=== PATIENT | female | born 1960 | race Caucasian/White ===

== ENCOUNTER 2018-12-17 07:20 | Observation (INO) | payer BC ==
[~2018-12-17] VITALS: Ht 170.2 cm; Wt 75.0 kg
[2018-12-17] MEDS ORDERED: NITR1PAT22 TD (07:38)
[2018-12-17] MEDS ORDERED: ASPI-496 PO (07:38)
--- NOTE | 2018-12-17 07:51 | NUR ---
PT ARRIVED TO ROOM 15 WITH [facility] VIA [facility]. PT AMBULATORY TO [facility]. DRESSED IN GOWN AND ATTACHED TO MONITOR. [facility] PT C/O CHEST PAIN, HX ANGINA, NO RELIEF AT HOME WITH NITRO OR REST. PT IS A TRANSFER FROM [facility] WITH [facility] FOR C/P PER PT'S CARDIOLOGY REQUEST. VSS, AAO X 4, CURRENTLY DENIES C/P AND H/A. PER EMS REPORT, PT SEVERLY HYPERTENSIVE IN [facility], GIVEN 40MG IV PUSH LABETALOL AND 100MG PO LABETALOL.
--- NOTE | 2018-12-17 08:12 | NUR ---
PT RESTING COMFORTABLY ON TOBIASRDERICK, AAO X 4, VSS, CALL LIGHT WITHIN REACH, PT UP TO DATE ON PLAN OF CARE.
--- NOTE | 2018-12-17 08:29 | NUR ---
FIRST ATTEMPT TO CALL REPORT, RN IN ROOM ADMINISTERING MEDICATIONS, RN STATES SHE WILL CALL BACK.
[2018-12-17] MEDS ORDERED: ONDANSETRON ODT 4 MG PO PRN (08:30)
[2018-12-17] MEDS ORDERED: NITROGLYCERIN 0.2 MG/HR PATCH TD PRN (08:30)
[2018-12-17] MEDS ORDERED: MAALOX/HYOSCYAMINE/LIDOCAINE 45 ML BTL PO ONE (08:30)
[2018-12-17] MEDS ORDERED: MORPHINE SULFATE 4 MG/ML, 1ML IVPush PRN (08:30)
[2018-12-17] MEDS ORDERED: ACETAMINOPHEN 325 MG TABLET PO PRN (08:30)
[2018-12-17] MEDS ORDERED: ONDANSETRON 2MG/ML, 2ML IVPush PRN (08:30)
[2018-12-17 08:49] LABS: TROPONIN I < 0.015 ng/mL (0.000-0.045)
--- NOTE | 2018-12-17 08:49 | NUR ---
REPORT GIVEN TO PROBATION OFFICER ALLAN MARTINEZ. PT TO TRANSFER TO INPATIENT STATUS.
[2018-12-17] MEDS: ASPIRIN 81 MG TABLET EC PO SCH (09:00)
[2018-12-17] MEDS: SODIUM CHLORIDE 0.9% 1,000 ML IV SCH (09:53)
[2018-12-17] MEDS: NICOTINE 14MG/24 HR PATCH.TD24 TD SCH (09:53)
[2018-12-17 12:39] VITALS: BP 149/87
[2018-12-17 14:14] LABS: TROPONIN I < 0.015 ng/mL (0.000-0.045)
[2018-12-17 19:36] VITALS: BP 157/95
[2018-12-18 01:12] VITALS: BP 158/85
[2018-12-18] MEDS: SODIUM CHLORIDE 0.9% 1,000 ML IV SCH (02:09)
[2018-12-18 05:29] LABS: BASOPHILS # (AUTO) 0.05 x10^3/uL (0-0.1); BASOPHILS % (AUTO) 1 % (0-1); EOSINOPHILS % (AUTO) 7 % (1-7); LYMPHOCYTES % (AUTO) 38 % (22-44); MD NO; MEAN CORPUSCULAR HEMOGLOBIN 32.8 pg (27.0-34.8); MEAN CORPUSCULAR HGB CONC 34.1 g/dL (32.4-35.8); MEAN CORPUSCULAR VOLUME 96.2 fL (80-100); MEAN PLATELET VOLUME 7.6 fL (7.4-10.4); MONOCYTES # (AUTO) 0.29 x10^3/uL (0.2-0.8); MONOCYTES % (AUTO) 7 % (2-9); NEUTROPHILS % (AUTO) 47 % (42-75); PLATELET COUNT 148 x10^3/uL (130-400); RED BLOOD COUNT 3.87 x10^6/uL (3.82-5.3); RED CELL DISTRIBUTION WIDTH 12.6 % (9.6-15.2)
[2018-12-18 05:43] LABS: ANION GAP 8 mmol/L (5-15); CALCIUM 8.5 mg/dL (8.5-10.1); CHLORIDE 107 mmol/L (98-107)
[2018-12-18 05:49] LABS: CHOL/HDL RATIO 3.7; CHOLESTEROL, TOTAL 153 mg/dL (140-239); CREATININE 0.68 mg/dL (0.55-1.02); HDL CHOL % 27 % (28-40); HDL CHOLESTEROL (DIRECT) 41 mg/dL (40-60); LDL CHOLESTEROL,CALCULATED 86 mg/dL (54-169); LDL/HDL RATIO 2.1 (0.5-3.0); TRIGLYCERIDES 128 mg/dL (50-200); VLDL CHOLESTEROL 26 mg/dL (0-25)
[2018-12-18 07:17] VITALS: BP 170/99
[2018-12-18] MEDS: NICOTINE 14MG/24 HR PATCH.TD24 TD SCH (08:44)
[2018-12-18] MEDS: ASPIRIN 81 MG TABLET EC PO SCH (08:44)
[2018-12-18] MEDS ORDERED: REGADENOSON 0.4 MG/5 ML SYRINGE ONE (08:49)
[2018-12-18] MEDS ORDERED: AMLODIPINE 5 MG TABLET PO SCH (09:00)
[2018-12-18] MEDS ORDERED: LISINOPRIL 10 MG TABLET PO SCH (09:00)
[2018-12-18 12:23] VITALS: BP 162/98
[2018-12-18] MEDS ORDERED: AMLO-150 PO (14:00)
[2018-12-18] MEDS ORDERED: LISI-167 PO (14:00)
[2018-12-18] MEDS ORDERED: NICO-486 TD (14:00)
== END 2018-12-18 14:50 | disposition home or self-care (01) ==
LOC: EDBD 08:12 → ED 08:12 → EDIP 08:40 → 5SO 09:22 → DCLOUNGE 12-18 14:41
PROVIDERS: ADMIT Internal Medicine; ATTEND Internal Medicine
DX: I20.9 Angina pectoris, unspecified (principal); I10 Essential (primary) hypertension; F17.210 Nicotine dependence, cigarettes, uncomplicated; G54.0 Brachial plexus disorders; Z88.0 Allergy status to penicillin; Z88.8 Allergy status to other drugs, medicaments and biological substances; Z90.49 Acquired absence of other specified parts of digestive tract; Z80.3 Family history of malignant neoplasm of breast; Z96.659 Presence of unspecified artificial knee joint
CPT/HCPCS: 36415; 78452; 80048; 80061; 84484; 85025; 93005; 93017; 99284; A9502; C9898; G0378; J2785; J7030